=== PATIENT | female | born 1970 | race Caucasian/White ===

== ENCOUNTER 2022-07-02 17:08 | Outpatient (REF) | payer OTHER, SELFPAY ==
--- NOTE | ~2022-07-02 | XR_ITS ---
EXAMINATION: XR hand wrist RT CLINICAL INFORMATION: Reason for Exam S60.211A - Contusion of right wrist, initial encounter COMPARISON: None. TECHNIQUE: AP, lateral, and oblique views of the right wrist XR/XR hand wrist RT FINDINGS/IMPRESSION: * There is a distal comminuted and impacted radial fracture with volar angulation of the distal fracture fragment, involvement of the radiocarpal joint cannot be excluded. There is surrounding soft tissue swelling. Next * Scaphoid bone appears grossly intact, however correlate with point tenderness to exclude scaphoid injury. If there is persistent concern, follow-up films in 7-10 days may be obtained
--- NOTE | ~2022-07-02 | XR_ITS ---
EXAMINATION: XR FOREARM, RIGHT CLINICAL INFORMATION: Fell last week. COMPARISON: None TECHNIQUE: AP and lateral views of the right forearm were obtained. FINDINGS: There is distal radial Colle's fracture with dorsal angulation and mild soft tissue swelling. No additional fracture seen. XR/XR forearm RT 2V IMPRESSION: Colle's fracture distal radius with dorsal angulation distal fragment. Mild soft tissue swelling.
== END 2022-07-02 17:09 | disposition home or self-care (01) ==
LOC: HO.HMGCX 17:08
PROVIDERS: Visit Provider Internal Medicine
DX: S60.211A Contusion of right wrist, initial encounter (principal); X58.XXXA Exposure to other specified factors, initial encounter; Y93.9 Activity, unspecified; Y92.9 Unspecified place or not applicable; Y99.9 Unspecified external cause status
CPT/HCPCS: 73090; 73110; 73130

== ENCOUNTER 2022-07-16 10:14 | Outpatient (REF) | payer OTHER, SELFPAY ==
--- NOTE | ~2022-07-16 | XR_ITS ---
EXAMINATION: XR WRIST, RIGHT CLINICAL INFORMATION: Right wrist pain. COMPARISON: Right wrist and forearm radiographs dated 07/02/2022. TECHNIQUE: PA, lateral, and oblique views of the right wrist. FINDINGS: Redemonstration of a comminuted distal radial fracture with apex ventral angulation and dorsal displacement of the distal fracture fragments. There is a dominant transverse component through the metaphysis of the distal radius with probable oblique components extending to the radiocarpal articular surface. There appears to be increased dorsal displacement when compared to the prior radiographs dated 07/02/2022. No significant new bone/callus formation identified. No concerning lytic or blastic osseous lesion. Circumferential soft tissue swelling. XR/XR wrist RT min 3V IMPRESSION: Comminuted distal radial fracture with slight interval increase in displacement when compared to the prior radiographs. No significant new bone/callus formation.
== END 2022-07-16 10:15 | disposition home or self-care (01) ==
LOC: HO.HOSX 10:14
PROVIDERS: Visit Provider Physician Assistant
DX: S52.91XD Unspecified fracture of right forearm, subsequent encounter for closed fracture with routine healing (principal); Z79.899 Other long term (current) drug therapy; X58.XXXD Exposure to other specified factors, subsequent encounter
CPT/HCPCS: 29125; 73110

== ENCOUNTER → 2022-07-21 08:49 | Day surgery (SDC) | payer OTHER, SELFPAY ==
[2022-07-21 07:43] VITALS: BMI 26.5
--- NOTE | 2022-07-21 07:46 | HO.ANESPROP2 ---
HPI - Anesthesia Eval Consult details Narrative: Old radius fx PMFSH Active Problems Active Problems: All Active Problems (Updated 07/16/22 @ 14:49 by MARBELLA Jarrell) Fracture of radius, right, closed (Acute) Contusion of wrist, right (Acute) Past Medical History Medical History (Updated 07/16/22 @ 14:49 by MARBELLA Jarrell) Asthma Family History Family history of problems with anesthesia: No Surgical History History of Problems with Anesthesia: No Social History Social History (Updated 07/16/22 @ 14:49 by MARBELLA Jarrell) Patient Tobacco Use Status: Current everyday Tobacco user Current occupational status: unemployed Current occupation: right handed Meds Allergies Allergy/AdvReac Type Severity Reaction Status Date / Time No Known Allergies Allergy Verified 07/16/22 14:47 [No Known Allergies*] Home Medications Medication Instructions Recorded Confirmed Last Taken Type albuterol sulfate 90 mcg/actuation 2 puff PO Q4H PRN wheezing 08/31/21 07/16/22 Unknown History aerosol inhaler (ProAir HFA) furosemide 20 mg tablet 40 mg PO DAILY 08/31/21 07/16/22 Unknown History hydroxyzine HCl 25 mg tablet 25 mg PO Q8H PRN anxiety 08/31/21 07/16/22 Unknown History sertraline 100 mg tablet 200 mg PO DAILY 08/31/21 07/16/22 Unknown History fluticasone propionate 110 1 puff inhalation BID 07/16/22 07/16/22 Unknown History mcg/actuation HFA aerosol inhaler (Flovent HFA) Exam Exam Date and Time: July 21, 2022 0746 Height,Weight and Vital Signs: Height 5 ft 3 in Weight 68.039 kg Airway Mallampati Class: II TM Dist: >3cm Neck ROM: Full Loose/Missing/Broken Teeth: No Heart: rrr Lungs: cta Assessment and Plan Final Anesthetic Review Family History of Problems with Anesthesia: No History of Problems with Anesthesia: No NPO: Yes ASA Class: II Final Preanesthetic Review: No Changes in Pt Med Stat, Meds/Allgs Chart Reviewed, Consent Obtained/Reviewed and Anes Risks/Benef Reviewed Patient Risk: Low Procedure Risk: Low Anesthetic Plan Anesthetic Plan: GA, Regional Block (axillary) and Agree w/ Assess. and Plan Disposition: Standard PACU
[2022-07-21] MEDS: Lactated Ringers 1,000 ML 50 ML IVCONT (09:19)
[2022-07-21 09:20] VITALS: BP 139/79; PULSE 94; RESP 18; TEMP 36.6; O2SAT 97
--- NOTE | 2022-07-21 09:49 | P.OP_ITS ---
Operative Note Operative Note Date of Service: 07/21/22 Narrative: Operative Note Narrative: Preop diagnosis: 1. Right displaced Distal radius fracture [ ] 2. Right carpal tunnel syndrome Postop diagnosis: Same Procedure: 1. [ ] Distal radius fracture open reduction internal fixation [ ] 2. Right carpal tunnel release Surgeon: Mayelin Dobson MD Anesthesia: General anesthesia plus regional block Findings: [ ] Implants: A 3 hole Accu Med volar locking plate, with [ ] 2.3 mm locking pegs/screws, and 3 3.5 mm cortical screws Tourniquet time: [ ] minutes EBL: 5.0 ml Specimen: None Drains: None Complications: None Disposition: Brought to the recovery room in stable condition Plan: Follow-up in 10-14 days for wound check, suture removal and postop radiographs The patient will be placed in either a short-arm cast or a volar wrist splint. Encouraged no lifting of anything heavier than a cell phone. Please encourage active and passive range of motion of the digits. Follow-up at 4-5 weeks postop for repeat radiographs. Indications: The patient is a 52 year old woman with delayed presentation of a right displaced distal radius fracture that is now about 4 weeks post injury, and evidence of right carpal tunnel syndrome . The risks and benefits of operative treatment, including but not limited to risk of damage to blood vessels, nerves, tendons, infection, recurrence, persistent pain or numbness, incomplete resolution of preoperative symptoms, or need for further surgery were discussed with the patient and they wished to proceed with surgery. Procedure: Once consent was obtained patient was brought back to the operating suite and placed in the operating table in a supine position. A regional block was performed by the anesthesia team. Perioperative antibiotics and anesthesia was administered by the anesthesia team. A tourniquet was applied to the proximal aspect of the right upper extremity and the limb was prepped and draped in a standard surgical fashion. The limb was elevated exsanguinated with Esmarch bandage and the tourniquet inflated to 250 mm of mercury for a total tourniquet time of [ ] minutes. Once assured that we had a good block, a 2.0 cm longitudinal incision was made centered over the right carpal tunnel. The incision was made through the skin to the subcutaneous tissues using a #15 blade. Dissection was made down to the level of the transverse carpal ligament with care being taken to protect the palmar cutaneous nerve. Once the transverse carpal ligament was clearly visualized, a longitudinal incision was made in the transverse carpal ligament 1st using a #15 blade, then using tenotomy scissors under direct visualization. Care was taken to look for and protect the motor branch of the median nerve when seen in this area. Once satisfied with our carpal tunnel release the wound was irrigated with normal saline. The FluoroScan was used throughout the case to assess our reduction, and facilitate implant placement. A gentle closed reduction was 1st performed on the patient's right distal radius fracture. Was assessed radiographically before proceeding with the reduction internal fixation. I then made an 8 cm longitudinal incision over the distal aspect of the flexor carpi radialis tendon. The incision was made through the skin to the subcutaneous tissue using a 15. Blade. Then carefully dissected down to flexor carpi radialis tendon she tenotomy scissors. The FCR tendon sheath was then incised longitudinally using tenotomy scissors under direct visualization. The FCR tendon was then retracted ulnarly. I then made a longitudinal incision in the volar forearm fascia through the floor of FCR tendon sheath using tenotomy scissors under direct visualization. I identified the interval between the radial artery and the flexor tendons. This interval was developed further with my index finger, releasing some of the muscular fibers of the flexor pollicis longus. A dull weatlander retractor was then placed. I then created an ulnarly based flap of the pronator quadratus by releasing the radial and distal edges using a 15. Blade. A Chawla elevator was used to elevate the pronator quadratus from the volar surface of the distal radius. This then revealed to us our distal radius fracture. An open reduction was then performed on our distal radius fracture. I then placed a short [narrow] 3 hole Accu Med volar locking plate on the volar surface of the distal radius. I placed a single K-wire through the distal aspect of the plate and into the distal radius. This was assessed using fluoroscopic images. I was satisfied with the placement of our plate. I then placed [ ] 2.3 mm locking screws/pegs in the distal aspect of the plate and distal radius by 1st drilling bicortically with a 1.8 mm drill bit, measuring with a depth gauge, and placing the appropriate length locking screws/pegs. The placement of our plate and screws was then assessed again using fluoroscopic images. The once satisfied with the placement of the volar locking plate and screws on the distal aspect of the distal radius, the plate was then reduced to the shaft of the radius. I then placed 3 3.5 mm cortical screws to the proximal aspect of the plate and into the shaft of the radius. This was done by 1st drilling bicortically with a 2.8 mm drill bit, measuring with a depth gauge, and placing the appropriate length screw. Final radiographs were then obtained. The DRUJ was assessed and found to be stable on exam. I was satisfied with our reduction and placement of all implants. At this point the wound was irrigated with normal saline. The pronator quadratus was reduced back over the volar locking plate using some 3-0 Vicryl suture material. The tourniquet was then deflated and hemostasis was obtained with a brief period of local pressure and bipolar monopolar electrocautery. The subcutaneous layer was then reapproximated using some 4-0 Vicryl suture, and the skin edges were reapproximated using some 5 0 Prolene suture. The wound was the n infiltrated with some 1% lidocaine with epinephrine postop pain control. A sterile dressing and a short dorsal splint allowing for active flexion and extension of the digits was applied. The patient appears to have tolerated the procedure well and with no complications. All digits were well vascularized conclusion of the case.
== END ==
PROVIDERS: Visit Provider Orthopaedic Surgery
DX: S52.501A Unspecified fracture of the lower end of right radius, initial encounter for closed fracture (principal); Z53.09 Procedure and treatment not carried out because of other contraindication

== ENCOUNTER 2022-07-21 12:06 | Emergency (ER) | payer OTHER, SELFPAY ==
--- NOTE | ~2022-07-21 | US_ITS ---
EXAMINATION: US VENOUS ULTRASOUND WITH DOPPLER LOWER EXTREMITY, LEFT CLINICAL INFORMATION: Left lower extremity edema COMPARISON: None TECHNIQUE: Ultrasound of the deep veins is performed from the hip to the calf with compression sonography and color and pulse Doppler assessment. Spectral analysis with color-flow imaging is performed. FINDINGS: There is normal venous compression and respiratory variation and augmented flow. The visualized common femoral vein, superficial femoral vein, profunda femoral vein, popliteal vein, and the trifurcation region shows no evidence of deep venous thrombosis. There is no significant popliteal fossa cyst. Prominent left groin lymph nodes are seen. If the patient's symptoms persist, followup ultrasound in 5 days 7 days might be of value to exclude proximal propagation from a non-visualized calf vein. US/US venous duplex LE IMPRESSION: No DVT demonstrated in the left lower extremity.
--- NOTE | ~2022-07-21 | XR_ITS ---
EXAMINATION: XR TIBIA AND FIBULA, LEFT CLINICAL INFORMATION: Left tibial wound. Question osteomyelitis. COMPARISON: None TECHNIQUE: AP and lateral views of the left tibia and fibula were obtained. FINDINGS: There is a soft tissue defect seen about the distal aspect of the left calf laterally. There is edematous change seen within the soft tissues. No acute fracture or dislocation is evident. No cortical erosion or osteopenia is seen in the region of the ulceration. No periosteal reaction is appreciated. XR/XR tibia fibula LT 2V IMPRESSION: Soft tissue edema with ulceration. No plain film evidence to suggest acute osteomyelitis.
--- NOTE | ~2022-07-21 | US_ITS ---
EXAMINATION: NONINVASIVE ASSESSMENT OF THE ARTERIES OF THE LEFT LOWER EXTREMITY Joe Sosa MD CLINICAL INFORMATION: Left lower extremity swelling. Left leg wound. TECHNIQUE: Left lower extremity duplex ultrasound was performed with velocity measurements and waveform analysis in the common femoral arteries, profunda femoris arteries, proximal mid and distal superficial femoral arteries, popliteal arteries and tibial vessels. This study was performed only at rest. COMPARISON: None FINDINGS: Velocities in cm/sec and phasicity as well as the presence of plaque are reported below. LEFT LEG: Multiphasic flow is present throughout and no significant plaque is identified. Common Femoral: 218 Profunda Femoris: 84 Proximal SFA: 144 Mid SFA: 159 Distal SFA: 112 Popliteal: 145 Tibial: 105 US/US arterial duplex LE LT IMPRESSION: There is no evidence of any hemodynamically significant lower left extremity arterial disease by waveform or duplex Doppler criteria at rest.
[2022-07-21 12:16] VITALS: BP 138/46; PULSE 93; RESP 18; TEMP 37.1; O2SAT 95; BMI 26.5
--- NOTE | 2022-07-21 12:20 | ED.GENADULT ---
HPI - General Adult General Chief complaint: Skin/Abscess/Foreign Body <LANE Barr - Last Filed: 07/21/22 19:15> Stated complaint: Infected wound <LANE Barr - Last Filed: 07/21/22 19:15> Time Seen by Provider: 07/21/22 16:[address] <[address] Barr - Last Filed: 07/21/22 19:15> Source: patient <LANE Hayden - Last Filed: 07/21/22 18:45> Mode of arrival: ambulatory <LANE Hayden - Last Filed: 07/21/22 18:45> Limitations: no limitations <LANE Hayden Last Filed: 07/21/22 18:45> History of Present Illness HPI narrative: This is a 52-year-old female presenting to the emergency department for evaluation of a wound to left lower extremity since January. Patient tells me she has had this wound for while and she was seen in the wound clinic for this wound multiple times however she had missed her last appointment due to her being sick. She tells me today she was scheduled for left hand/ wrist surgery and they advised her to come in for evaluation of left lower extremity wound. Patient tells me that the wound is unchanged from what she is used to. She denies numbness, tingling, fevers, chills, chest pain, shortness of breath, headache, vision changes, dizziness, weakness. <LANE Hayden - Last Filed: 07/21/22 18:45> Related Data Home medications: Home Medications Medication Instructions Recorded Confirmed albuterol sulfate 90 mcg/actuation 2 puff PO Q4H PRN wheezing 08/31/21 07/21/22 aerosol inhaler (ProAir HFA) furosemide 20 mg tablet 40 mg PO DAILY 08/31/21 07/21/22 hydroxyzine HCl 25 mg tablet 25 mg PO Q8H PRN anxiety 08/31/21 07/21/22 sertraline 100 mg tablet 200 mg PO DAILY 08/31/21 07/21/22 fluticasone propionate 110 1 puff inhalation BID 07/16/22 07/21/22 mcg/actuation HFA aerosol inhaler (Flovent HFA) Previous Rx's Medication Instructions Recorded cephalexin 500 mg tablet 500 mg PO Q6H 10 days #40 tabs 07/21/22 doxycycline hyclate 100 mg capsule 100 mg PO BID 10 days #20 caps 07/21/[address] <[address] Barr Last Filed: 07/21/22 19:15> Allergies/adverse reactions: Allergies Allergy/AdvReac Type Severity Reaction Status Date / Time No Known Allergies Allergy Verified 07/21/22 09:24 [No Known Allergies*] <LANE Barr Last Filed: 07/21/22 19:15> Review of Systems Review of Systems: Constitutional : No Weight loss, No Fever, No Chills, No Fatigue, No Malaise ENT/Mouth : No sore throat, No Rhinorrhea Eyes: No Eye Pain, No Swelling, No Redness Cardiovascular : No Chest Pain, No SOB, No Dyspnea on Exertion, No Orthopnea, No Edema, No Palpitations Respiratory : No Cough, No Sputum, No Wheezing Gastrointestinal : No Nausea, No Vomiting, No Diarrhea, No Constipation, No abdominal Pain, No Hematochezia, No Melena Genitourinary : No Dysuria, No Urinary Frequency, No Hematuria, Musculoskeletal : No joint pain, No Myalgias, No Joint Swelling Skin : No Skin Lesions, No rash, + wound Neuro : No Weakness, No Numbness, No Dizziness, No Headache Psych : No Anxiety/Panic, No Depression All other systems reviewed and are negative <LANE Hayden Last Filed: 07/21/22 18:45> Yes all other systems are reviewed and are negative <LANE Hayden Last Filed: 07/21/22 18:45> [facility] Past Medical History Attestation statement: The following information was validated with the patient. <LANE Hayden Last Filed: 07/21/22 18:45> Source: old records reviewed and nursing notes reviewed <LANE Hayden Last Filed: 07/21/22 18:45> Medical History: Medical History Asthma Menopause Smoker <LANE Barr Last Filed: 07/21/22 19:15> Surgical History: Surgical History (Updated 07/21/22 @ 09:22 by Brenda Piedra RN) Hx of colonoscopy <LANE Barr Last Filed: 07/21/22 19:15> Social History Social History: Social History (Updated 07/16/22 @ 14:49 by MARBELLA Jarrell) Patient Tobacco Use Status: Current everyday Tobacco user Tobacco use type: Cigarette Advance Directives: No Advance Directives Information Provided: Yes Current occupational status: unemployed Current occupation: right handed <LANE Barr - Last Filed: 07/21/22 19:15> Physical Exam ED Vital Signs: Vital Signs - 24 hr 07/21/22 12:16 07/21/22 18:50 Temperature 98.7 F Pulse Rate 93 84 Respiratory Rate 18 18 Blood Pressure 138/46 L 143/75 H Pulse Oximetry 95 97 Oxygen Delivery Method Room Air Room Air BMI result Body Mass Index 26.[address] <[address] Barr - Last Filed: 07/21/22 19:15> Vital Signs - 24 hr 07/21/22 12:16 07/21/22 18:50 Temperature 98.7 F Pulse Rate 93 84 Respiratory Rate 18 18 Blood Pressure 138/46 L 143/75 H Pulse Oximetry 95 97 Oxygen Delivery Method Room Air Room Air BMI result Body Mass Index 26.5 [address] <L[address] Hayden - Last Filed: 07/21/22 18:45> Vital Signs - 24 hr 07/21/22 12:16 07/21/22 18:50 Temperature 98.7 F Pulse Rate 93 84 Respiratory Rate 18 18 Blood Pressure 138/46 L 143/75 H Pulse Oximetry 95 97 Oxygen Delivery Method Room Air Room Air BMI result Body Mass Index 26.5 <Sahil Ramirez MD - Last Filed: 07/21/22 22:25> Appearance: Alert.? Oriented X3.? No acute distress.? Head: Normocephalic, atraumatic, no step-offs or deformities Eyes: Pupils equal, round and reactive to light.? CVS: Normal heart rate and rhythm.? Pulses normal.? Respiratory: No respiratory distress.? Breath sounds normal.? Abdomen: Soft and nontender.? Skin: Skin warm and dry.? Normal skin color.? Normal skin turgor.? Extremities: 2+ pitting edema to LLE, No pitting edema to RLE.? No calf ttp. 5/5 strength to bilateral upper and lower extremities. + large wound to left anterior abbott w/ some surrounding errythema and warmth w/ yellow / green dc from wound 2+ DP,AT,PT pulses equal and b/l. Neuro: Oriented X 3.? No motor deficit.? No sensory deficit. CN 2-[address] Hayden - Last Filed: 07/21/22 18:45> Course Course Course Narrative: RME: patient sent from wound [facility] for left leg wound that seems infected for IV antibiotics. Patient states wound is chronic but got worse. physical exam positive for greeen discharge on wound. Xray with labs ordered <LANE Barr - Last Filed: 07/21/22 19:15> Reevaluation(s) Reevaluation #1: I did speak to Dr. Mayelin Dobson who recommends to keep the wrist nonweightbearing and keep it in the splint with frequent neuro checks. She also recommends hospital admission for left lower extremity wound for IV antibiotics. She tells me ortho will follow. She tells me she saw patient outpatient last week and scheduled surgery for today. She reports patient has had a broken wrist for about 4 weeks. She tells me when patient was in the OR they noted that she had a dressing that had been unchanged since May, therefore they recommended she go to Wound Clinic, patient try going to Wound Clinic and they sent her here. She reports she does not need an emergent surgery to the right wrist it can be an outpatient procedure, she tells me there likely will be a change of plans and patient will likely require an osteotomy. Will place a surgical consult and speak to the hospitalist once labs and imaging have resulted. <LANE Hayden - Last Filed: 07/21/22 18:45> Time: 18:03 <L[address] Hayden - Last Filed: 07/21/22 18:45> Reevaluation #2: CBC appears to be within normal limits slight normocytic anemia noted however no reports of active bleeding. Chemistry with no acute electrolyte abnormalities requiring intervention. Inflammatory markers are elevated I suspect this is secondary to chronic wound. I do not suspect septic joint, threatened limb , acute osteo. Normal lactic acid. Patient's vital signs are stable. BNP within normal limits. Venous duplex of left lower extremity with no DVT demonstrated in the left lower extremity. X-ray of left tibia fibula with soft tissue edema with ulceration no plain film evidence to suggest acute osteomyelitis. arterial duplex still pending however low suspicion for acute rolled gluten as she does have palpable pulses in bilateral lower extremities. Hospitalist feel as though this is a chronic issue and does not require hospital admission. I did speak to both and Kaylan Iraheta who both agree admission is not necessary. I spoke to general surgery aswell Dr. Garcia who recommends DC home with outpatient follow up with wound care and general surgery however nothing to be done acutely about this issue. Plan is to wait for arterial duplex and discharge patient home on p.o. antibiotics with wound clinic and General surgery follow-up. I will give her strict return precautions and things to look out for. I will let her know that her right wrist should be nonweightbearing and splint should be kept in place. Will teach her how to do self neuro checks. <LANE Hayden - Last Filed: 07/21/22 18:45> Time: 18:39 <L[address] Hayden - Last Filed: 07/21/22 18:45> Reevaluation #3: Arterial study negative for arterial occlusion. Patient will be discharged home on antibiotics. Educated patient on diagnosis and treatment plan, answered all question, patient verbalizes understanding. At this time patient will be discharged home, advised to return with new or worsening symptoms. Educated on worrisome signs and symptoms and when to return. At this time I feel comfortable discharge home. <LANE Hayden - Last Filed: 07/21/22 18:45> Time: 18:44 <L[address] Hayden - Last Filed: 07/21/22 18:45> Medications Administered Discontinued Medications Generic Name Dose Route Start Last Admin Trade Name Freq PRN Reason Stop Dose Admin Piperacillin Sod/Tazobactam 50 mls @ 100 mls/hr 07/21/22 17:55 07/21/22 19:01 Sod 3.375 gm/ Sodium Chloride IV 07/21/22 18:24 Not Given ONCE ONE <LANE Barr - Last Filed: 07/21/22 19:15> Medications Administered Discontinued Medications Generic Name Dose Route Start Last Admin Trade Name Freq PRN Reason Stop Dose Admin Piperacillin Sod/Tazobactam 50 mls @ 100 mls/hr 07/21/22 17:55 07/21/22 19:01 Sod 3.375 gm/ Sodium Chloride IV 07/21/22 18:24 Not Given ONCE ONE <LANE Hayden - Last Filed: 07/21/22 18:45> Medications Administered Discontinued Medications Generic Name Dose Route Start Last Admin Trade Name Freq PRN Reason Stop Dose Admin Piperacillin Sod/Tazobactam 50 mls @ 100 mls/hr 07/21/22 17:55 07/21/22 19:01 Sod 3.375 gm/ Sodium Chloride IV 07/21/22 18:24 Not Given ONCE ONE <Sahil Ramirez MD - Last Filed: 07/21/22 22:25> Medical Decision Making Medical Decision Making MDM Narrative: 1700 52-year-old female presents for evaluation of wound to left lower extremity on anterior abbott since January, tells me they canceled her hand/wrist surgery today because of this wound. Denies any changes to wound. Physical exam significant for2+ pitting edema to LLE, No pitting edema to RLE.? No calf ttp. 5/5 strength to bilateral upper and lower extremities. + large wound to left anterior abbott w/ some surrounding errythema and warmth w/ yellow / green dc 2+ DP,AT,PT pulses equal and b/l. likely chronic wound ( venous stasis wound) with overlying cellulitis. Unlikely venous or arterial occlusion. No signs of necrotizing infection. Unlikely threatened limb. Low suspicion for osteomyelitis plan at this time is basic labs, blood cultures, lactic acid, x-ray <LANE Hayden - Last Filed: 07/21/22 18:45> Differential Diagnosis Differential Diagnoses: The differential diagnosis associated with the presentation includes <LANE Hayden Last Filed: 07/21/22 18:45> likely chronic wound ( venous stasis) with overlying cellulitis. Unlikely venous or arterial occlusion. No signs of necrotizing infection. Unlikely threatened limb. Low suspicion for osteomyelitis <LANE Hayden - Last Filed: 07/21/22 18:45> Admission/Observation Consideration of admission/observation: Escalation of care including admission/observation considered <LANE Hayden - Last Filed: 07/21/22 18:45> Consult Healthcare Provider Management of the patient was discussed with: Hospitalist and Electronic Controls Repairer Supervisor ( General surgery and ortho) <LANE Hayden - Last Filed: 07/21/22 18:45> Lab Data MDM Lab Attestation statement: I reviewed the patient's lab results. <LANE Hayden - Last Filed: 07/21/22 18:45> Result Diagrams: 07/21/22 15:44 07/21/22 15:[address] <[address] Barr - Last Filed: 07/21/22 19:15> Labs: Lab Results 07/21/22 07/21/22 07/21/22 Range/Units 12:57 15:44 15:44 WBC 7.1 (4.8-10.8) X10*3/uL RBC 4.19 L (4.20-5.50) X10*6/uL Hgb 11.9 L (12.0-16.0) g/dl Hct 36.5 L (37.0-47.0) % MCV 87.1 (80.0-98.0) fL MCH 28.4 (27.0-33.0) pg MCHC 32.6 (31.0-35.0) g/dl RDW 12.2 (11.0-16.0) % Plt Count 329 (160-400) X10*3/uL MPV 9.0 L (9.4-12.3) fL Immature Gran % (Auto) 0.3 (0.0-0.4) % Neut % (Auto) 58.7 (45-73) % Lymph % (Auto) 27.8 (20-40) % [place] % (Auto) 9.1 (2-11) % Eos % (Auto) 3.4 (0-4) % Baso % (Auto) 0.7 (0-2) % Lymph # (Auto) 2.0 (1.2-4.9) X10*3/uL [place] # (Auto) 0.7 (0.1-1.2) X10*3/uL Eos # (Auto) 0.2 (0.0-0.4) X10*3/uL Baso # (Auto) 0.1 (0.0-0.2) X10*3/uL Abs Immat Gran (auto) 0.02 (0.00-0.03) X10*3/uL Absolute Neuts (auto) 4.2 (2.0-8.3) x10*3/uL Absolute Nucleated RBC 0.000 (0.0-0.012) X10*3/uL Nucleated RBC % (auto) 0.0 (0.0-0.2) /100WBC ESR 81 H (0-20) MM/HR PT 12.3 (10.0-13.1) SEC INR 1.1 (0.9-1.1) APTT 30.8 (26.0-36.4) SEC Sodium (135-145) mmol/L Potassium (3.3-5.1) mmol/L Chloride (96-108) mmol/L Carbon Dioxide (22-29) mmol/L Anion Gap (12-20) BUN (9-16) mg/dL Creatinine (0.5-1.4) mg/dL Estim Creat Clear Calc Estimated GFR Random Glucose (60-115) mg/dL Lactic Acid (0.5-2.0) mmol/L Calcium (8.4-10.2) mg/dL Total Bilirubin (0.0-1.0) mg/dL AST (5-31) U/L ALT (0-31) U/L Alkaline Phosphatase (39-117) U/L C-Reactive Protein (< or = 0.50) mg/dL B-Natriuretic Peptide (<100) pg/mL Total Protein (6.5-8.0) g/dL Albumin (3.5-5.0) g/dL 07/21/22 07/21/22 07/21/22 Range/Units 15:44 15:54 17:25 WBC (4.8-10.8) X10*3/uL RBC (4.20-5.50) X10*6/uL Hgb (12.0-16.0) g/dl Hct (37.0-47.0) % MCV (80.0-98.0) fL MCH (27.0-33.0) pg MCHC (31.0-35.0) g/dl RDW (11.0-16.0) % Plt Count (160-400) X10*3/uL MPV (9.4-12.3) fL Immature Gran % (Auto) (0.0-0.4) % Neut % (Auto) (45-73) % Lymph % (Auto) (20-40) % [place] % (Auto) (2-11) % Eos % (Auto) (0-4) % Baso % (Auto) (0-2) % Lymph # (Auto) (1.2-4.9) X10*3/uL [place] # (Auto) (0.1-1.2) X10*3/uL Eos # (Auto) (0.0-0.4) X10*3/uL Baso # (Auto) (0.0-0.2) X10*3/uL Abs Immat Gran (auto) (0.00-0.03) X10*3/uL Absolute Neuts (auto) (2.0-8.3) x10*3/uL Absolute Nucleated RBC (0.0-0.012) X10*3/uL Nucleated RBC % (auto) (0.0-0.2) /100WBC ESR (0-20) MM/HR PT (10.0-13.1) SEC INR (0.9-1.1) APTT (26.0-36.4) SEC Sodium 141 (135-145) mmol/L Potassium 3.8 (3.3-5.1) mmol/L Chloride 101 (96-108) mmol/L Carbon Dioxide 32 H (22-29) mmol/L Anion Gap 12 (12-20) BUN 11 (9-16) mg/dL Creatinine 0.73 (0.5-1.4) mg/dL Estim Creat Clear Calc 83.5 Estimated GFR > 60 Random Glucose 94 (60-115) mg/dL Lactic Acid 0.6 (0.5-2.0) mmol/L Calcium 9.4 (8.4-10.2) mg/dL Total Bilirubin 0.4 (0.0-1.0) mg/dL AST 18 (5-31) U/L ALT 15 (0-31) U/L Alkaline Phosphatase 107 (39-117) U/L C-Reactive Protein 4.49 H (< or = 0.50) mg/dL B-Natriuretic Peptide 58 (<100) pg/mL Total Protein 7.1 (6.5-8.0) g/dL Albumin 4.1 (3.5-5.0) g/dL <LANE Barr - Last Filed: 07/21/22 19:15> Lab Results 07/21/22 07/21/22 07/21/22 Range/Units 12:57 15:44 15:44 WBC 7.1 (4.8-10.8) X10*3/uL RBC 4.19 L (4.20-5.50) X10*6/uL Hgb 11.9 L (12.0-16.0) g/dl Hct 36.5 L (37.0-47.0) % MCV 87.1 (80.0-98.0) fL MCH 28.4 (27.0-33.0) pg MCHC 32.6 (31.0-35.0) g/dl RDW 12.2 (11.0-16.0) % Plt Count 329 (160-400) X10*3/uL MPV 9.0 L (9.4-12.3) fL Immature Gran % (Auto) 0.3 (0.0-0.4) % Neut % (Auto) 58.7 (45-73) % Lymph % (Auto) 27.8 (20-40) % [place] % (Auto) 9.1 (2-11) % Eos % (Auto) 3.4 (0-4) % Baso % (Auto) 0.7 (0-2) % Lymph # (Auto) 2.0 (1.2-4.9) X10*3/uL [place] # (Auto) 0.7 (0.1-1.2) X10*3/uL Eos # (Auto) 0.2 (0.0-0.4) X10*3/uL Baso # (Auto) 0.1 (0.0-0.2) X10*3/uL Abs Immat Gran (auto) 0.02 (0.00-0.03) X10*3/uL Absolute Neuts (auto) 4.2 (2.0-8.3) x10*3/uL Absolute Nucleated RBC 0.000 (0.0-0.012) X10*3/uL Nucleated RBC % (auto) 0.0 (0.0-0.2) /100WBC ESR 81 H (0-20) MM/HR PT 12.3 (10.0-13.1) SEC INR 1.1 (0.9-1.1) APTT 30.8 (26.0-36.4) SEC Sodium (135-145) mmol/L Potassium (3.3-5.1) mmol/L Chloride (96-108) mmol/L Carbon Dioxide (22-29) mmol/L Anion Gap (12-20) BUN (9-16) mg/dL Creatinine (0.5-1.4) mg/dL Estim Creat Clear Calc Estimated GFR Random Glucose (60-115) mg/dL Lactic Acid (0.5-2.0) mmol/L Calcium (8.4-10.2) mg/dL Total Bilirubin (0.0-1.0) mg/dL AST (5-31) U/L ALT (0-31) U/L Alkaline Phosphatase (39-117) U/L C-Reactive Protein (< or = 0.50) mg/dL B-Natriuretic Peptide (<100) pg/mL Total Protein (6.5-8.0) g/dL Albumin (3.5-5.0) g/dL 07/21/22 07/21/22 07/21/22 Range/Units 15:44 15:54 17:25 WBC (4.8-10.8) X10*3/uL RBC (4.20-5.50) X10*6/uL Hgb (12.0-16.0) g/dl Hct (37.0-47.0) % MCV (80.0-98.0) fL MCH (27.0-33.0) pg MCHC (31.0-35.0) g/dl RDW (11.0-16.0) % Plt Count (160-400) X10*3/uL MPV (9.4-12.3) fL Immature Gran % (Auto) (0.0-0.4) % Neut % (Auto) (45-73) % Lymph % (Auto) (20-40) % [place] % (Auto) (2-11) % Eos % (Auto) (0-4) % Baso % (Auto) (0-2) % Lymph # (Auto) (1.2-4.9) X10*3/uL [place] # (Auto) (0.1-1.2) X10*3/uL Eos # (Auto) (0.0-0.4) X10*3/uL Baso # (Auto) (0.0-0.2) X10*3/uL Abs Immat Gran (auto) (0.00-0.03) X10*3/uL Absolute Neuts (auto) (2.0-8.3) x10*3/uL Absolute Nucleated RBC (0.0-0.012) X10*3/uL Nucleated RBC % (auto) (0.0-0.2) /100WBC ESR (0-20) MM/HR PT (10.0-13.1) SEC INR (0.9-1.1) APTT (26.0-36.4) SEC Sodium 141 (135-145) mmol/L Potassium 3.8 (3.3-5.1) mmol/L Chloride 101 (96-108) mmol/L Carbon Dioxide 32 H (22-29) mmol/L Anion Gap 12 (12-20) BUN 11 (9-16) mg/dL Creatinine 0.73 (0.5-1.4) mg/dL Estim Creat Clear Calc 83.5 Estimated GFR > 60 Random Glucose 94 (60-115) mg/dL Lactic Acid 0.6 (0.5-2.0) mmol/L Calcium 9.4 (8.4-10.2) mg/dL Total Bilirubin 0.4 (0.0-1.0) mg/dL AST 18 (5-31) U/L ALT 15 (0-31) U/L Alkaline Phosphatase 107 (39-117) U/L C-Reactive Protein 4.49 H (< or = 0.50) mg/dL B-Natriuretic Peptide 58 (<100) pg/mL Total Protein 7.1 (6.5-8.0) g/dL Albumin 4.1 (3.5-5.0) g/dL <LANE Hayden - Last Filed: 07/21/22 18:45> Lab Results 07/21/22 07/21/22 07/21/22 Range/Units 12:57 15:44 15:44 WBC 7.1 (4.8-10.8) X10*3/uL RBC 4.19 L (4.20-5.50) X10*6/uL Hgb 11.9 L (12.0-16.0) g/dl Hct 36.5 L (37.0-47.0) % MCV 87.1 (80.0-98.0) fL MCH 28.4 (27.0-33.0) pg MCHC 32.6 (31.0-35.0) g/dl RDW 12.2 (11.0-16.0) % Plt Count 329 (160-400) X10*3/uL MPV 9.0 L (9.4-12.3) fL Immature Gran % (Auto) 0.3 (0.0-0.4) % Neut % (Auto) 58.7 (45-73) % Lymph % (Auto) 27.8 (20-40) % [place] % (Auto) 9.1 (2-11) % Eos % (Auto) 3.4 (0-4) % Baso % (Auto) 0.7 (0-2) % Lymph # (Auto) 2.0 (1.2-4.9) X10*3/uL [place] # (Auto) 0.7 (0.1-1.2) X10*3/uL Eos # (Auto) 0.2 (0.0-0.4) X10*3/uL Baso # (Auto) 0.1 (0.0-0.2) X10*3/uL Abs Immat Gran (auto) 0.02 (0.00-0.03) X10*3/uL Absolute Neuts (auto) 4.2 (2.0-8.3) x10*3/uL Absolute Nucleated RBC 0.000 (0.0-0.012) X10*3/uL Nucleated RBC % (auto) 0.0 (0.0-0.2) /100WBC ESR 81 H (0-20) MM/HR PT 12.3 (10.0-13.1) SEC INR 1.1 (0.9-1.1) APTT 30.8 (26.0-36.4) SEC Sodium (135-145) mmol/L Potassium (3.3-5.1) mmol/L Chloride (96-108) mmol/L Carbon Dioxide (22-29) mmol/L Anion Gap (12-20) BUN (9-16) mg/dL Creatinine (0.5-1.4) mg/dL Estim Creat Clear Calc Estimated GFR Random Glucose (60-115) mg/dL Lactic Acid (0.5-2.0) mmol/L Calcium (8.4-10.2) mg/dL Total Bilirubin (0.0-1.0) mg/dL AST (5-31) U/L ALT (0-31) U/L Alkaline Phosphatase (39-117) U/L C-Reactive Protein (< or = 0.50) mg/dL B-Natriuretic Peptide (<100) pg/mL Total Protein (6.5-8.0) g/dL Albumin (3.5-5.0) g/dL 07/21/22 07/21/22 07/21/22 Range/Units 15:44 15:54 17:25 WBC (4.8-10.8) X10*3/uL RBC (4.20-5.50) X10*6/uL Hgb (12.0-16.0) g/dl Hct (37.0-47.0) % MCV (80.0-98.0) fL MCH (27.0-33.0) pg MCHC (31.0-35.0) g/dl RDW (11.0-16.0) % Plt Count (160-400) X10*3/uL MPV (9.4-12.3) fL Immature Gran % (Auto) (0.0-0.4) % Neut % (Auto) (45-73) % Lymph % (Auto) (20-40) % [place] % (Auto) (2-11) % Eos % (Auto) (0-4) % Baso % (Auto) (0-2) % Lymph # (Auto) (1.2-4.9) X10*3/uL [place] # (Auto) (0.1-1.2) X10*3/uL Eos # (Auto) (0.0-0.4) X10*3/uL Baso # (Auto) (0.0-0.2) X10*3/uL Abs Immat Gran (auto) (0.00-0.03) X10*3/uL Absolute Neuts (auto) (2.0-8.3) x10*3/uL Absolute Nucleated RBC (0.0-0.012) X10*3/uL Nucleated RBC % (auto) (0.0-0.2) /100WBC ESR (0-20) MM/HR PT (10.0-13.1) SEC INR (0.9-1.1) APTT (26.0-36.4) SEC Sodium 141 (135-145) mmol/L Potassium 3.8 (3.3-5.1) mmol/L Chloride 101 (96-108) mmol/L Carbon Dioxide 32 H (22-29) mmol/L Anion Gap 12 (12-20) BUN 11 (9-16) mg/dL Creatinine 0.73 (0.5-1.4) mg/dL Estim Creat Clear Calc 83.5 Estimated GFR > 60 Random Glucose 94 (60-115) mg/dL Lactic Acid 0.6 (0.5-2.0) mmol/L Calcium 9.4 (8.4-10.2) mg/dL Total Bilirubin 0.4 (0.0-1.0) mg/dL AST 18 (5-31) U/L ALT 15 (0-31) U/L Alkaline Phosphatase 107 (39-117) U/L C-Reactive Protein 4.49 H (< or = 0.50) mg/dL B-Natriuretic Peptide 58 (<100) pg/mL Total Protein 7.1 (6.5-8.0) g/dL Albumin 4.1 (3.5-5.0) g/dL <Sahil Ramirez MD - Last Filed: 07/21/22 22:25> Independent Interpretation I performed an independent interpretation of an: Plain X-Ray (Soft tissue edema with ulceration. No plain film evidence to suggest acute osteomyelitis. ) and Ultrasound ( unremarkable) <LANE Hayden - Last Filed: 07/21/22 18:45> Radiology Impression Discussion of test interpretation with radiology: I have reviewed the radiologist's reading. <LANE Hayden - Last Filed: 07/21/22 18:45> External Record Review External record reviewed: Inpatient record, Office record, Outpatient record, Prior outpatient labs, Prior outpatient radiology, Primary care record and Outside ED record <LANE Hayden - Last Filed: 07/21/22 18:45> Core Measures AMI core measures followed: Yes <LANE Hayden - Last Filed: 07/21/22 18:45> Measure exclusions: not indicated <LANE Hayden - Last Filed: 07/21/22 18:45> Attestation Attending Attestation: I reviewed HEAD OF PRECISION TARGETING/PA/Resident note, assessment and plan. I agree with the documentation, assessment and plan unless otherwise stated. <Sahil Ramirez MD - Last Filed: 07/21/22 22:25> Critical Care Time Critical Care Time Critical Care Time: No <LANE Hayden - Last Filed: 07/21/22 18:45> Discharge Plan Discharge Clinical Impression: Open wound of left lower extremity, Cellulitis, Left leg swelling <LANE Barr - Last Filed: 07/21/22 19:15> Patient Disposition: Home, Self-Care <LANE Barr - Last Filed: 07/21/22 19:15> Instructions: Wound Infection (ED), Cellulitis (ED), Wound Healing and Your Diet (ED) <LANE Barr - Last Filed: 07/21/22 19:15> Additional Instructions: Take your medications as prescribed. If you were prescribed antibiotics today, it is important that you take your medication to their entirety, do not skip any doses, do not finish them early. Follow-up with your primary care provider this week. Return to the emergency department with new or worsening symptoms. Such as fevers, chills, chest pain, shortness of breath, nausea, vomiting, dizziness, headache, vision changes, lethargy In case of emergency call 911 please follow-up with General surgery, wound care and Orthopedics within a week. Look out for worsening signs of infection such as redness, swelling, drainage, numbness, tingling, if any of these arise you should report to the emergency department immediately. Please take your antibiotics as prescribed. Your x-ray showed soft tissue swelling with an ulceration however no signs of osteomyelitis. There is no DVT in the left lower extremity. Or arterial occlusion. <LANE Barr - Last Filed: 07/21/22 19:15> Prescriptions: New doxycycline hyclate 100 mg capsule 100 mg PO BID 10 Days Qty: 20 0RF cephalexin 500 mg tablet 500 mg PO Q6H 10 Days Qty: 40 0RF No Action hydroxyzine HCl 25 mg tablet 25 mg PO Q8H PRN (Reason: anxiety) albuterol sulfate [ProAir HFA] 90 mcg/actuation HFA aerosol inhaler 2 puff PO Q4H PRN (Reason: wheezing) sertraline 100 mg tablet 200 mg PO DAILY furosemide 20 mg tablet 40 mg PO DAILY fluticasone propionate [Flovent HFA] 110 mcg/actuation HFA aerosol inhaler 1 puff inhalation BID <LANE Barr - Last Filed: 07/21/22 19:15> [place]: [facility] [place] [facility] [place]Provider Group] - 1 day [facility] [place] [facility] [place]Provider Group] - 1 day [facility] [place] [facility] [Provider Group] - [address] day <[address] Barr - Last Filed: 07/21/22 19:15> Stand Alone Forms: Work/School Release <LANE Barr - Last Filed: 07/21/22 19:15> Interventions: ED Discharge Assessment Last Done: 07/21/22 19:07 <L[address] Barr - Last Filed: 07/21/22 19:15> Discharge Date/Time: 07/21/22 19:20 <L[address] Barr - Last Filed: 07/21/22 19:15>
[2022-07-21 13:17] LABS: INTERNATIONAL NORM RATIO 1.1 (0.9-1.1); Prothrombin Time 12.3 SEC (10.0-13.1)
[2022-07-21 13:19] LABS: Partial Thromboplastin Time 30.8 SEC (26.0-36.4)
[2022-07-21 15:55] LABS: MANUAL DIFF FLAG NO
[2022-07-21 15:59] LABS: Basophils Absolute Auto 0.1 X10*3/uL (0.0-0.2); Basophils Percent Auto 0.7 % (0-2); Eosinophils Absolute Auto 0.2 X10*3/uL (0.0-0.4); Eosinophils Percent Auto 3.4 % (0-4); Hematocrit 36.5 % (37.0-47.0); Hemoglobin 11.9 g/dl (12.0-16.0); Imm Gran Abs Auto 0.02 X10*3/uL (0.00-0.03); Imm Gran Pct Auto 0.3 % (0.0-0.4); Lymphocytes Percent Auto 27.8 % (20-40); Mean Corpuscular HGB Conc 32.6 g/dl (31.0-35.0); Mean Corpuscular Hemoglobin 28.4 pg (27.0-33.0); Mean Corpuscular Volume 87.1 fL (80.0-98.0); Monocytes Absolute Auto 0.7 X10*3/uL (0.1-1.2); Monocytes Percent Auto 9.1 % (2-11); Neutrophils Absolute Auto 4.2 x10*3/uL (2.0-8.3); Neutrophils Percent Auto 58.7 % (45-73); Platelet Count 329 X10*3/uL (160-400); Red Blood Count 4.19 X10*6/uL (4.20-5.50); Red Cell Distribution Width 12.2 % (11.0-16.0); White Blood Count 7.1 X10*3/uL (4.8-10.8)
[2022-07-21 16:14] LABS: Alanine Aminotransferase 15 U/L (0-31); Albumin Level 4.1 g/dL (3.5-5.0); Alkaline Phosphatase 107 U/L (39-117); Anion Gap 12 (12-20); Aspartate Amino Transferase 18 U/L (5-31); Bilirubin Total 0.4 mg/dL (0.0-1.0); Blood Urea Nitrogen 11 mg/dL (9-16); C Reactive Protein 4.49 mg/dL (< or = 0.50); Calcium 9.4 mg/dL (8.4-10.2); Carbon Dioxide 32 mmol/L (22-29); Chloride 101 mmol/L (96-108); Creatinine Clr Calc Pharmacy 83.5; Estimated Glomerular Filt Rate > 60; Glucose Random 94 mg/dL (60-115); Potassium 3.8 mmol/L (3.3-5.1); Sodium 141 mmol/L (135-145); Total Protein 7.1 g/dL (6.5-8.0)
[2022-07-21 16:35] LABS: Erythrocyte Sedimentation Rate 81 MM/HR (0-20)
[2022-07-21 17:37] LABS: B Type Natriuretic Peptide 58 pg/mL (<100)
[2022-07-21 17:44] LABS: Lactic Acid 0.6 mmol/L (0.5-2.0)
[2022-07-21 18:50] VITALS: BP 143/75; PULSE 84; RESP 18; O2SAT 97
--- NOTE | 2022-07-21 19:01 | PC.NURSE ---
per PA instructions - bacitracin applied to wound on left abbott, nonadhesive dressing applied and wrapped. pt tolerated well.
== END 2022-07-21 19:20 | disposition home or self-care (01) ==
PROVIDERS: Physician Assistant; Emergency Provider Emergency Medicine; PCP Internal Medicine
DX: S81.802A Unspecified open wound, left lower leg, initial encounter (principal); X58.XXXA Exposure to other specified factors, initial encounter; L03.116 Cellulitis of left lower limb; R60.0 Localized edema; F17.210 Nicotine dependence, cigarettes, uncomplicated; Y93.9 Activity, unspecified; Y92.9 Unspecified place or not applicable; Y99.9 Unspecified external cause status
CPT/HCPCS: 36415; 73590; 80053; 83605; 83880; 85025; 85610; 85652; 85730; 86140; 87040; 93926; 93971; 99282; 99284

== ENCOUNTER 2022-07-29 16:45 | Outpatient (REF) | payer OTHER, SELFPAY ==
--- NOTE | ~2022-07-29 | XR_ITS ---
EXAMINATION: XR WRIST, RIGHT CLINICAL INFORMATION: Right wrist pain. COMPARISON: 07/16/2022 and 07/02/2022. TECHNIQUE: PA, lateral, and oblique views of the right wrist. FINDINGS: There is again noted to be a comminuted displaced intra-articular fracture of the distal right radius. The radial fracture displacement appears similar to study of 07/16/2022 but had increased since study of 07/02/2022. On today's study the dorsal angulation of the radiocarpal joint appears similar to study of 07/16/2022 but increased compared to study of 07/02/2022. The same appears be true about the articulation of the proximal carpal row with the distal radius. There is a small amount of callus formation now identified about the fracture site as well as increase in osteopenia. There is acquired positive ulnar variance. XR/XR wrist RT min 3V IMPRESSION: Continued dorsal angulation of the radiocarpal joint as well as stable displacement of comminuted distal right radial fracture compared to study of 07/16/2022. A small amount of callus formation.
== END 2022-07-29 16:46 | disposition home or self-care (01) ==
LOC: HO.HOSX 16:45
PROVIDERS: Visit Provider Orthopaedic Surgery
DX: S52.91XD Unspecified fracture of right forearm, subsequent encounter for closed fracture with routine healing (principal); S60.211D Contusion of right wrist, subsequent encounter; S81.801D Unspecified open wound, right lower leg, subsequent encounter; M25.531 Pain in right wrist; L08.9 Local infection of the skin and subcutaneous tissue, unspecified; R20.0 Anesthesia of skin; X58.XXXD Exposure to other specified factors, subsequent encounter
CPT/HCPCS: 73110

== ENCOUNTER → 2022-08-19 15:00 | Outpatient (BNVA) | payer OTHER, SELFPAY | PROVIDERS: PCP Internal Medicine; Visit Provider Orthopaedic Surgery | DX: Z13.89 Encounter for screening for other disorder (principal) ==

== ENCOUNTER 2022-08-21 08:43 | Day surgery (SDC) | payer OTHER, SELFPAY ==
--- NOTE | 2022-08-20 11:56 | HO.ANESPROP2 ---
Documented by User: Beverly Cali NP 08/20/22 11:57 HPI - Anesthesia Eval Consult details Narrative: 52yo F for Right Carpal Tunnel Release PMFSH Active Problems Active Problems: All Active Problems (Updated 07/29/22 @ 12:13 by Johnathan Cody) Numbness of right hand (Acute) Contusion of wrist, right (Acute) Fracture of radius, right, closed (Acute) Past Medical History Medical History Asthma Menopause Smoker Family History Family history of problems with anesthesia: No Surgical History Surgical History Hx of colonoscopy History of Problems with Anesthesia: No Social History Social History Patient Tobacco Use Status: Former Tobacco user Tobacco use type: Cigarette Smoked in Last 30 Days: Yes Are you DNR?: No Advance Directives: No Advance Directives Information Provided: Yes Nutrition Risks: No Nutritional Risk Current occupational status: unemployed Current occupation: right handed Meds Allergies Allergy/AdvReac Type Severity Reaction Status Date / Time No Known Allergies Allergy Verified 08/21/22 08:57 [No Known Allergies*] Home Medications Medication Instructions Recorded Confirmed Last Taken Type albuterol sulfate 90 mcg/actuation 2 puff PO Q4H PRN wheezing 08/31/21 08/21/22 Unknown History aerosol inhaler (ProAir HFA) furosemide 20 mg tablet 40 mg PO DAILY 08/31/21 08/21/22 Unknown History hydroxyzine HCl 25 mg tablet 25 mg PO Q8H PRN anxiety 08/31/21 08/21/22 Unknown History sertraline 100 mg tablet 200 mg PO DAILY 08/31/21 08/21/22 Unknown History fluticasone propionate 110 1 puff inhalation BID 07/16/22 08/21/22 Unknown History mcg/actuation HFA aerosol inhaler (Flovent HFA) Exam Exam Date and Time: August 20, 2022 115 Pertinent Lab Results Pertinent Lab Results: Laboratory Tests 07/21/22 07/21/22 15:44 15:44 WBC 7.1 Hgb 11.9 L Hct 36.5 L Plt Count 329 Sodium 141 Potassium 3.8 Chloride 101 Carbon Dioxide 32 H BUN 11 Creatinine 0.73 Assessment and Plan Assessment Anesthesia Assessment: Chart Reviewed Final Anesthetic Review Family History of Problems with Anesthesia: No History of Problems with Anesthesia: No Documented by User: Todd Mendez MD 08/21/22 11:18 PMFSH Past Medical History Medical History Asthma Menopause Smoker Surgical History Surgical History Hx of colonoscopy Social History Social History Patient Tobacco Use Status: Former Tobacco user Tobacco use type: Cigarette Smoked in Last 30 Days: Yes Are you DNR?: No Advance Directives: No Advance Directives Information Provided: Yes Nutrition Risks: No Nutritional Risk Current occupational status: unemployed Current occupation: right handed Meds Allergies Allergy/AdvReac Type Severity Reaction Status Date / Time No Known Allergies Allergy Verified 08/21/22 08:57 [No Known Allergies*] Home Medications Medication Instructions Recorded Confirmed Last Taken Type albuterol sulfate 90 mcg/actuation 2 puff PO Q4H PRN wheezing 08/31/21 08/21/22 Unknown History aerosol inhaler (ProAir HFA) furosemide 20 mg tablet 40 mg PO DAILY 08/31/21 08/21/22 Unknown History hydroxyzine HCl 25 mg tablet 25 mg PO Q8H PRN anxiety 08/31/21 08/21/22 Unknown History sertraline 100 mg tablet 200 mg PO DAILY 08/31/21 08/21/22 Unknown History fluticasone propionate 110 1 puff inhalation BID 07/16/22 08/21/22 Unknown History mcg/actuation HFA aerosol inhaler (Flovent HFA) Exam Airway Mallampati Class: II TM Dist: >3cm Neck ROM: Full Loose/Missing/Broken Teeth: Yes Heart: [id number] Lungs: cta b/l Assessment and Plan Assessment Anesthesia Assessment: Anesthesia Plan Discussed Final Anesthetic Review NPO: Yes ASA Class: III Final Preanesthetic Review: No Changes in Pt Med Stat, Meds/Allgs Chart Reviewed, Consent Obtained/Reviewed and Anes Risks/Benef Reviewed Patient Risk: Intermediate Procedure Risk: Intermediate Assessment/Block/Sedation in SS: Assess/Block/Sedation-SS Anesthetic Plan Anesthetic Plan: GA and Agree w/ Assess. and Plan Disposition: Standard PACU
[2022-08-21] VITALS (8 sets, daily range): BP systolic 128–169; BP diastolic 71–92; PULSE 94–109; RESP 16–18; TEMP 36.1–37.1; O2SAT 90–98; BMI 23.9
--- NOTE | 2022-08-21 07:52 | W.PM.OPN ---
Operative Note Operative Note Date of Service: 08/21/22 Narrative: Operative Note Narrative: Preop diagnosis: 1. Right carpal tunnel syndrome Postop diagnosis: Same Procedure: 1. Right carpal tunnel release Surgeon: Mayelin Dobson MD Anesthesia: General Anesthesia Findings: Right wrist deformity secondary to fracture malunion Implants: None Tourniquet time: 8 minutes EBL: 5.0 ml Specimen: None Drains: None Complications: None Disposition: Brought to the recovery room in stable condition Plan: Follow-up in 10-14 days for wound check, suture removal and to check pathology Indications: The patient is a 52-year-old woman with a right distal radius malunion, right carpal tunnel syndrome, and a complex wound on her lower extremity recovering from infection . The risks and benefits of operative treatment, including but not limited to risk of damage to blood vessels, nerves, tendons, infection, recurrence, persistent pain or numbness, incomplete resolution of preoperative symptoms, or need for further surgery were discussed with the patient and they wished to proceed with surgery. Procedure: Once consent was obtained patient was brought back to the operating suite and placed in the operating table in a supine position. . Perioperative antibiotics and anesthesia was administered by the anesthesia team. A tourniquet was applied to the proximal aspect of the right upper extremity and the limb was prepped and draped in a standard surgical fashion. The limb was elevated exsanguinated with Esmarch bandage and the tourniquet inflated to 250 mm of mercury for a total tourniquet time of 8 minutes. A 2.0 cm longitudinal incision was made centered over the right carpal tunnel. The incision was made through the skin to the subcutaneous tissues using a #15 blade. Dissection was made down to the level of the transverse carpal ligament with care being taken to protect the palmar cutaneous nerve. Once the transverse carpal ligament was clearly visualized, a longitudinal incision was made in the transverse carpal ligament 1st using a #15 blade, then using tenotomy scissors under direct visualization. Care was taken to look for and protect the motor branch of the median nerve when seen in this area. Once satisfied with our carpal tunnel release the wound was irrigated with normal saline. At this point the tourniquet was deflated and hemostasis obtained with a brief period of local pressure and bipolar electrocautery. The wound was copiously irrigated with normal saline. The skin edges were reapproximated with 5-0 nylon suture. The wound was infiltrated with some 2% lidocaine with epinephrine for postop pain control and a sterile dressing was applied. The patient appears to have tolerated the procedure well and with no complications. All digits were well vascularized conclusion of the case.
[2022-08-21] MEDS: Lactated Ringers 1,000 ML 100 ML IVCONT (09:43)
== END 2022-08-21 14:38 | disposition home or self-care (01) ==
PROVIDERS: Visit Provider Orthopaedic Surgery
PROC: (CPT 64721; principal; 2022-08-21 10:00)
DX: G56.01 Carpal tunnel syndrome, right upper limb (principal); R20.0 Anesthesia of skin; J45.909 Unspecified asthma, uncomplicated; Z79.51 Long term (current) use of inhaled steroids; Z79.899 Other long term (current) drug therapy; F17.210 Nicotine dependence, cigarettes, uncomplicated
CPT/HCPCS: 64721; J1100; J1885; J2405; J3010

== ENCOUNTER → 2022-09-03 14:25 | Outpatient (BNVA) | payer OTHER, SELFPAY | PROVIDERS: Visit Provider Orthopaedic Surgery | DX: Z13.89 Encounter for screening for other disorder (principal) ==

== ENCOUNTER → 2022-11-14 13:30 | Outpatient (RCR) | payer OTHER, MEDICAID, SELFPAY | END | disposition home or self-care (01) | LOC: HO.WCC 09-25 14:24 | PROVIDERS: PCP Internal Medicine; Visit Provider Physician Assistant | DX: I87.332 Chronic venous hypertension (idiopathic) with ulcer and inflammation of left lower extremity (principal); L97.822 Non-pressure chronic ulcer of other part of left lower leg with fat layer exposed; F17.210 Nicotine dependence, cigarettes, uncomplicated | CPT/HCPCS: 11042; 11045; 15271; 15272; 88304; 99213; Q4101 ==

== ENCOUNTER 2023-01-20 13:56 | Outpatient (AMB) | payer OTHER, SELFPAY ==
--- NOTE | 2023-01-20 13:59 | A.OFFVIS_ITS ---
Intake Vital Signs 01/20/23 14:07 Height 5 ft 3 in Weight 139 lb 2 oz BMI 24.6 BP 142/73 H Blood Pressure Location Lt brachial Position Sitting Pulse 101 H Intake Visit Reasons: Cellulitis left lower extremity Intake Note: Patient is seen in office for evaluation and treatment of cellulitis of left lower extremity. Patient c/o: onset 1 and half year, has an ulcer on the foot, which is being taking care by wound center, leg swelling, discharge, sees wound center twice a week and wrap her legs, unsure what is causing the swelling Records Management Specialist Required: No Accompanied by: Self / Same As Patient Allergies No Known Allergies [No Known Allergies*] Allergy (Verified 01/20/23 14:07) Medication List - Last Reconciled 01/20/23 by Pérez Hayward MD albuterol sulfate 90 mcg/actuation (ProAir HFA) 2 puffs PO Q4H PRN fluticasone propionate 110 mcg/actuation (Flovent HFA) 1 puff inhalation BID furosemide 40 mg PO DAILY hydroxyzine HCl 25 mg PO Q8H PRN sertraline 200 mg PO DAILY HPI HPI Comments History of Present Illness Details 53-year-old female patient presenting with complaints of a left leg skin ulceration with edema which is been present for at least a year. She was previously evaluated in the emergency department in July 2022 and presents today for a follow-up examination. She reports being evaluated and treated at a wound care center in [place]. She is undergoing twice daily dressing changes at the Wound Care Center and since starting the current Center 2 weeks ago has noted a dramatic improvement. A Hydrophero blue dressing is being applied. She reports a significant amount of discharge from the wound and persistent edema in both legs. She reports having an extensive workup including Doppler ultrasounds all of which have been negative. PFSH Medical History Asthma Menopause Smoker Surgical History Hx of colonoscopy Social History Patient Tobacco Use Status: Former Tobacco user Tobacco use type: Cigarette Current occupational status: unemployed Current occupation: right handed Review of Systems Const All systems reviewed & are unremarkable except as noted in HPI and below Denies chills, Denies fever(s), Denies headache(s), Denies poor appetite and Denies weakness ENT Denies headache(s) Card Denies chest pain, Denies irregular heart rhythm, Denies palpitations and Denies dyspnea Resp Denies cough, Denies excessive phlegm production and Denies dyspnea GI Denies abdominal pain, Denies bloating, Denies change in bowel habits, Denies constipation, Denies heartburn, Denies diarrhea, Denies nausea and Denies vomiting Denies urinary frequency Musc Denies back pain, Denies muscle weakness and Denies numbness Skin/Breast Reports as per HPI, Denies changing lesions, Reports skin ulcer, Reports sores and Denies unusual bruising Neuro Denies headache(s), Denies numbness, Denies paresthesias and Denies weakness Psych Denies anxiety and Denies depression Endo Denies palpitations Pb/Lymph Denies lymphadenopathy Physical Exam Const General: cooperative and no acute distress Nutritional Appearance: well nourished Orientation/consciousness: patient oriented x3 Limitations: no limitations HEENT Head: Yes normocephalic and Yes atraumatic Ears: hearing grossly normal bilaterally Resp Effort & Inspection: normal respiratory effort, no audible wheezes, no cough and no respiratory distress Cardio Jugular venous distension: no JVD GI Inspection: Yes normal to inspection Skin Other: Warm, dry, no rash Neuro General: patient oriented x3 Extrem Other: 2+ edema bilateral lower extremities left greater than right. Extensive ulceration in the lower left extremity with foul-smelling discharge. Ulcers located along the anterior surface of the leg between the malleoli. Granulation tissue is noted at the wound base. Dressings were reapplied with dry sterile dressing. Patient is returning to the Wound Care Center later today for dressing change. Ankle/foot/toe images: 1. 2. Assessment & Plan Assessment & Plan (1) Venous stasis ulcer: Code(s): I83.009 - Varicose veins of unspecified lower extremity with ulcer of unspecified site; L97.909 - Non-pressure chronic ulcer of unspecified part of unspecified lower leg with unspecified severity Plan 53-year-old female patient with a chronic venous stasis ulcer involving the left lower extremity. She is being treated at the [facility] in [place] which seems to be making progress in the past 2 weeks. I recommended she continue with the twice weekly treatments at the Wound Care Center. She should follow up in our office if any surgical intervention is recommended by the Wound Care Center. She expressed understanding and agrees with the plan. Coding Level of Care Code New Pt Level 4 (44604) Diagnoses Venous stasis ulcer I83.009; L97.909
[2023-01-20 14:07] VITALS: BP 142/73; PULSE 101; BMI 24.6
== END 2023-01-20 14:23 | disposition home or self-care (01) ==
PROVIDERS: PCP Internal Medicine; Visit Provider Surgery
DX: I83.023 Varicose veins of left lower extremity with ulcer of ankle (principal); L97.329 Non-pressure chronic ulcer of left ankle with unspecified severity
CPT/HCPCS: 99203

== ENCOUNTER → 2023-01-20 13:56 | Outpatient (BNVA) | payer OTHER, SELFPAY | PROVIDERS: PCP Internal Medicine; Visit Provider Surgery ==

== ENCOUNTER 2023-05-26 07:44 | Outpatient (REF) | payer OTHER, SELFPAY ==
--- NOTE | ~2023-05-26 | CT_ITS ---
EXAMINATION: CT WRIST WITHOUT CONTRAST, RIGHT CLINICAL INFORMATION: Fracture. COMPARISON: Radiographs 07/29/2022. TECHNIQUE: CT without contrast is performed on the right wrist with sagittal and coronal reformats. This CT examination was performed using dose optimization techniques as appropriate, variously including the following: *Automated exposure control *Adjustment of mA and/or kV according to patient size (this includes techniques or standardized protocols for targeted exams where dose is matched to indication/reason for exam; i.e. extremities or head) *Use of iterative reconstruction technique DLP: 129 mGy-cm FINDINGS: The distal radius fracture appears completely healed with residual dorsal impaction and approximately 30 degrees of dorsal angulation. The radial styloid nearly abuts the midportion of the scaphoid with secondary degenerative change including subchondral cysts. There is a 6 mm area of residual articular surface flattening and surface irregularity at the dorsal/ulnar aspect of the distal radius. Lateral to this defect, the ulnar aspect of the distal radius nearly abuts the proximal lunate. Secondary ulnar positive variance with degenerative changes at the junction of the distal ulna with the proximal pisiform. There is an ununited, proximally and dorsally displaced fracture of the ulnar styloid. CT/CT wrist RT wo IV con IMPRESSION: 1. 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 2. Ununited ulnar styloid fracture. 3. Secondary ulnar positive variance with degenerative changes at the junction of the distal ulna with the proximal pisiform.
== END 2023-05-26 07:45 | disposition home or self-care (01) ==
LOC: HO.CT 07:44
PROVIDERS: PCP Internal Medicine; Visit Provider Orthopaedic Surgery
DX: S52.501P Unspecified fracture of the lower end of right radius, subsequent encounter for closed fracture with malunion (principal)
CPT/HCPCS: 73200

== ENCOUNTER 2023-08-05 08:56 | Outpatient (REF) | payer OTHER, SELFPAY ==
--- NOTE | ~2023-08-05 | XR_ITS ---
EXAMINATION: XR WRIST, RIGHT CLINICAL INFORMATION: Pain in the right wrist COMPARISON: 07/29/2022 TECHNIQUE: PA, lateral, and oblique views of the right wrist. FINDINGS: Healed distal radial fracture with impaction and callus formation is now present. There is a small chip fracture off the ulnar styloid which was present on the CT wrist of 05/26/2023. Carpal alignment normal. New fractures are not seen. 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 New fractures are not seen.
== END 2023-08-05 08:57 | disposition home or self-care (01) ==
LOC: HO.HOSX 08:56
PROVIDERS: Visit Provider Orthopaedic Surgery
DX: S60.211A Contusion of right wrist, initial encounter (principal); S52.91XA Unspecified fracture of right forearm, initial encounter for closed fracture
CPT/HCPCS: 73110

== ENCOUNTER 2023-08-05 14:44 | Outpatient (AMB) | payer OTHER, SELFPAY ==
--- NOTE | 2023-08-05 14:57 | MHC.OFFVIS ---
Intake Vital Signs 08/05/23 14:58 Height 5 ft 3 in Weight 139 lb BMI 24.6 Intake Visit Reasons: O.V discuss osteotomy surgery/review CT scan Intake Note: Jo 53 yr old female presents today for a follow up visit and to discuss possible right wrist corrective osteotomy surgery and review her CT scan. Allergies No Known Allergies [No Known Allergies*] Allergy (Verified 08/05/23 14:59) HPI O.V discuss osteotomy surgery/review CT scan HPI Details Jo is a 53 year old right hand dominant woman who returns for a right wrist CT scan review. She has a right distal radius fx malunion, DOI: 06/24/22 after falling on her TV stand. She has a right distal radius fracture malunion and is here to discuss surgery. She says she has pain with use of her wrist, and even picking up light objects is difficult for her and causes her wrist to hurt. She was first seen for this injury about 4 weeks post injury, and there was significant displacement. We were going to try to take it to surgery that week, however on the day of surgery we were made aware of a large open foul-smelling wound on her right lower extremity. Surgery at that time was canceled. We did take her to surgery in July of 2022 to perform her right carpal tunnel release. She has had good resolution of her numbness. In regards to her leg wound, she says this has mostly healed but she continues to attend a wound clinic, as well as having a nurse making home visits. It sounds like this is a venous stasis ulcer. I asked if she has heart problems, but she said she does not think so. She says she has some issues with Edema in her legs, and is now on Furosemide for this, which she says is helping her somewhat. She says that her wound clinic believes that she might get the wound healed by summer. However we should remember that this wound was very present more than a year ago. She says she smokes ~1/2 pack of cigarettes a day as well as Marijuana before bed to help with her anxiety. She denies vaping. Please see my previous notes for more information PFSH Medical History Asthma Menopause Smoker Surgical History Hx of colonoscopy Social History Patient Tobacco Use Status: Former Tobacco user Tobacco use type: Cigarette Current occupational status: unemployed Current occupation: right handed Review of Systems Const All systems reviewed & are unremarkable except as noted in HPI and below Physical Exam Vital Signs: BMI result Body Mass Index 24.6 Const General: no acute distress and alert Orientation/consciousness: patient oriented x3 Neuro General: patient oriented x3 Extrem Other: Evaluation of Right Upper Extremity: The patient is alert, oriented, and in no acute distress Neuro: Normal sensation to the tips of all digits, including the middle finger. This is a nice improvement. No thenar or intrinsic wasting Good APB muscle belly firing and good finger cross Vascular: Cap refill brisk ROM: She can make a weak fist and extend all her digits She has a visible apex volar deformity of her wrist, of ~30+ degrees She has ~30 degrees of supination She has ~40 degrees of pronation She has rather significant shortening on clinical exam. Right wrist CT FINDINGS: The distal radius fracture appears completely healed with residual dorsal impaction and approximately 30 degrees of dorsal angulation. The radial styloid nearly abuts the midportion of the scaphoid with secondary degenerative change including subchondral cysts. There is a 6 mm area of residual articular surface flattening and surface irregularity at the dorsal/ulnar aspect of the distal radius. Lateral to this defect, the ulnar aspect of the distal radius nearly abuts the proximal lunate. Secondary ulnar positive variance with degenerative changes at the junction of the distal ulna with the proximal pisiform. There is an ununited, proximally and dorsally displaced fracture of the ulnar styloid. IMPRESSION: 1. 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 2. Ununited ulnar styloid fracture. 3. Secondary ulnar positive variance with degenerative changes at the junction of the distal ulna with the proximal pisiform. Arley Driver MD 05/27/23 Radiographs: 3 views of the right wrist were taken and viewed by me today in clinic. Again they show her distal radius fracture with ~35 degrees of apex volar angulation as well as significant shortening and loss of radial inclination. Significant compensatory flexion in the midcarpal joint. There also appears to be some possible abutment between the pisiform in the distal ulna. We are starting to see some degenerative changes. Psych Appearance: grossly normal Affect: normal affect Attitude: cooperative Assessment & Plan Assessment & Plan (1) Contusion of wrist, right: Code(s): S60.211A - Contusion of right wrist, initial encounter (2) Fracture of radius, right, closed: Code(s): S52.91XA - Unspecified fracture of right forearm, initial encounter for closed fracture Plan Assessment & plan: 1. Right Distal radius Fx malunion DOI: 06/22/22 from a fall ~ 30-35 degrees of apex volar angulation with significant shortening 2. Large right lower leg wound/infection Patient estimates this is still ~8-10cm in diameter over the dorsal aspect of the lower leg about the ankle level. No longer infected She continues to attend wound care 2x weekly and perform at-home dressing changes She reports that wound care says this should heal by the summertime. Please note that this wound was present and about the size over a year ago. She says she smokes ~1/2 pack of cigarettes a day as well as Marijuana before bed I discussed the effects of smoking on wound healing and counselled her and her about stopping smoking before we can proceed with surgery. I recommend she consider transitioning to CBD gummies at night to help with her anxiety instead of smoking I also discussed proper nutrition I educated her about this condition I discussed operative and non-operative treatment options The patient would like to proceed with surgery, however we need to wait until her leg wound has healed, and she also needs to be a nonsmoker and without nicotine for at least 3 months before considering a corrective osteotomy. I discussed a corrective distal radial osteotomy in more detail with her and her I believe they understand the importance of optimizing her health to give her the best chance for success with a single operation. To minimize risks for infection and also risks for possible nonunion. She was fitted for a new velcro wrist splint to wear with daily activity She will follow up prn after her wound has healed to see how she is doing.. No X-rays until we are ready for pre-operative planning to discuss surgery. Once we feel ready to proceed with surgery, she will be scheduled for a 30 minute appointment. They are happy with the current plan. 3. Right Carpal tunnel syndrome, S/P release DOS: 08/21/22 Pre-operatively with dense numbness Now with normal sensation to the tips of all digits Please note that greater than 45 minutes was spent with this patient going over the history, evaluating the patient and radiographs, formulating possible treatment options, discussing them with the patient, and documenting the visit. Scribed for Mayelin Dobson MD by Johnathan Cody, medical referral coordinator, on 08/05/23 at 3:51 PM, EST. Orders: Orders XR wrist RT min 3V Today M25.531 - Pain in right wrist Coding Level of Care Code Est Pt Level 5 (00274) Diagnoses Contusion of wrist, right S60.211A Fracture of radius, right, closed S52.91XA
[2023-08-05 14:58] VITALS: BMI 24.6
== END 2023-08-05 16:28 | disposition home or self-care (01) ==
PROVIDERS: PCP Internal Medicine; Visit Provider Orthopaedic Surgery
DX: S52.91XA Unspecified fracture of right forearm, initial encounter for closed fracture (principal); S60.211A Contusion of right wrist, initial encounter
CPT/HCPCS: 99215